=== PATIENT | male | born 1980 | race Hispanic/Latino ===

== ENCOUNTER 2022-04-14 06:47 | Day surgery (SDC) | payer BC ==
[2022-04-08 16:17] LABS: BASOPHILS % (AUTO) 0.7 % (0.0-5.0); EOSINOPHILS % (AUTO) 2.9 % (0.0-8.0); HEMATOCRIT 41.3 % (42-54); LYMPHOCYTES % (AUTO) 36.4 % (21.0-51.0); MEAN CORPUSCULAR HEMOGLOBIN 29.6 pg (27.0-33.0); MEAN CORPUSCULAR HGB CONC 33.7 g/dL (32.0-36.0); MEAN CORPUSCULAR VOLUME 87.9 fL (79-99); MONOCYTES % (AUTO) 10.3 % (3.0-13.0); NEUTROPHILS % (AUTO) 49.4 % (40.0-77.0); PLATELET COUNT (AUTO) 216 K/uL (130-400); RED CELL DISTRIBUTION WIDTH 12.4 % (11.0-15.5); WHITE BLOOD COUNT (AUTO) 6.8 K/uL (4.8-10.8)
[2022-04-08 16:32] LABS: CREATININE 0.9 mg/dL (0.5-1.5); INR 0.93 (0.85-1.15); POTASSIUM 3.8 mmol/L (3.5-5.1); PROTHROMBIN TIME 9.9 SEC (9.6-11.6)
[2022-04-08 16:33] LABS: PARTIAL THROMBOPLASTIN TIME 28.4 SEC (26.3-35.5)
[2022-04-13 10:46] VITALS: BP 144/93
[2022-04-14] VITALS (16 sets, daily range): BP systolic 83–131; BP diastolic 44–86
[~2022-04-14] VITALS: Ht 167.6 cm; Wt 94.1 kg
[2022-04-14] MEDS: CEFAZOLIN SODIUM 1 GM VIAL IVP SCH ×2 (06:00→09:15)
[2022-04-14] MEDS ORDERED: LACTATED RINGERS 1000ML 1,000 ML IV ONE (06:53)
[2022-04-14] MEDS ORDERED: LIOT5TAB11 PO (07:14)
[2022-04-14] MEDS ORDERED: LEVO125C4 PO (07:14)
[2022-04-14] MEDS ORDERED: LORA10TA7 PO (07:14)
[2022-04-14] MEDS ORDERED: PANT40TA54 PO (07:14)
[2022-04-14] MEDS ORDERED: LATA7.5D OP (07:14)
[2022-04-14] MEDS ORDERED: TIMO1DRO5 OP (07:14)
[2022-04-14] MEDS ORDERED: METH-811 PO (07:14)
[2022-04-14] MEDS ORDERED: BUPIVACAINE/PF 0.25% 30ML VIAL IJ ONE (07:55)
[2022-04-14] MEDS ORDERED: BACITRACIN 28.4 GM OINT TP ONE (07:55)
[2022-04-14] MEDS ORDERED: DEXAMETHASONE SOD PHOSPHATE 10MG/ML 1ML VIAL ONE ×2 (07:57→09:14)
[2022-04-14] MEDS ORDERED: LIDOCAINE PF 100MG/5ML (2%) SYRINGE 5ML ONE (07:57)
[2022-04-14] MEDS ORDERED: SUCCINYLCHOLINE 200MG/10ML SYR ONE (07:57)
[2022-04-14] MEDS ORDERED: ONDANSETRON 4MG INJ ONE (07:58)
[2022-04-14] MEDS ORDERED: MIDAZOLAM HCL 1 MG/ML 2ML VIAL ONE (07:58)
[2022-04-14] MEDS ORDERED: ROCURONIUM 10MG/1ML SYR 10 MG/ML ML ONE (07:58)
[2022-04-14] MEDS ORDERED: GLYCOPYRROLATE 1 MG/5 ML SYRINGE ONE (07:58)
[2022-04-14] MEDS ORDERED: PROPOFOL 10 MG/ML 20ML VIAL IV ONE (07:58)
[2022-04-14] MEDS ORDERED: NEOSTIGMINE 5MG/5ML SYR IV ONE (07:58)
[2022-04-14] MEDS ORDERED: FENTANYL CITRATE PF 50 MCG/1 ML 2ML VIAL ONE (07:59)
[2022-04-14] MEDS ORDERED: KETOROLAC 30MG VIAL (30MG/ML) ONE ×2 (09:39→09:55)
== END 2022-04-14 11:15 | disposition home or self-care (01) ==
LOC: DAH 06:47
PROVIDERS: ATTEND Urology
DX: Z30.2 Encounter for sterilization (principal); K21.9 Gastro-esophageal reflux disease without esophagitis; M19.90 Unspecified osteoarthritis, unspecified site; Z79.899 Other long term (current) drug therapy; Z79.01 Long term (current) use of anticoagulants; Z83.3 Family history of diabetes mellitus
CPT/HCPCS: 80048; 85025; 85610; 85730; 87426; 36415; 93005; 55250; A6260; A4663; J7120 ×2; J3010; J0690; J0330; J1100 ×2; J3490; J2001; J2250; J2704; J2405; J1885 ×2; A4930; A4215; A4223; A6402; A4222; A4221; J2710